=== PATIENT | female | born 1995 | race Caucasian/White ===

== ENCOUNTER → 2016-06-23 | Outpatient (CLI) | payer BC, OTHER ==
[~2016-06-23] MED LIST: ASCORBIC ACID500 MG PO; IRON325 M1 PO; MOTRIN-DPS800 MG PO; PEPCID DPS20 MG PO; PRENATAL VITAM1 EAC9 PO
== END | disposition home or self-care (01) ==
LOC: RAD.S 10:30
DX: O36.80X0 Pregnancy with inconclusive fetal viability, not applicable or unspecified (principal); Z3A.09 9 weeks gestation of pregnancy

== ENCOUNTER → 2016-09-04 | Outpatient (CLI) | payer BC, OTHER | END | disposition home or self-care (01) | LOC: RAD.S 18:05 | DX: Z36 Encounter for antenatal screening of mother (principal); Z3A.20 20 weeks gestation of pregnancy ==

== ENCOUNTER → 2016-09-11 | Outpatient (CLI) | payer BC, OTHER | END | disposition home or self-care (01) | LOC: RAD.S 18:30 | DX: Z36 Encounter for antenatal screening of mother (principal); Z3A.21 21 weeks gestation of pregnancy ==